=== PATIENT | female | born 1950 | race Caucasian/White ===

== ENCOUNTER → 2016-10-03 | Outpatient (CLI) | payer MEDICARE, OTHER ==
[2016-10-03 14:04] LABS: CHLORIDE,CL 107 mmol/L (98-110); SODIUM,NA 141 mmol/L (136-146)
== END ==
LOC: MW.CHIM 13:00
PROVIDERS: ATTEND Internal Medicine Endocrinology, Diabetes & Metabolism
DX: E83.51 Hypocalcemia (principal)
CPT/HCPCS: 36415; 80053

== ENCOUNTER → 2016-10-23 | Outpatient (CLI) | payer MEDICARE, OTHER | END | disposition home or self-care (01) | LOC: MW.LAB 13:03 | PROVIDERS: ATTEND Surgery | DX: E89.0 Postprocedural hypothyroidism (principal) | CPT/HCPCS: 36415; 84439; 84443; 84481 ==

== ENCOUNTER → 2016-11-23 | Outpatient (CLI) | payer MEDICARE ==
[2016-11-23 14:10] LABS: CHLORIDE,CL 109 mmol/L (98-110); SODIUM,NA 141 mmol/L (136-146)
== END ==
LOC: MW.LAB 12:58
PROVIDERS: ATTEND Internal Medicine Endocrinology, Diabetes & Metabolism
DX: E83.51 Hypocalcemia (principal)
CPT/HCPCS: 36415; 80053; 82306; 82310; 83735; 83970; 84100

== ENCOUNTER → 2016-11-30 | Outpatient (CLI) | payer MEDICARE ==
[2016-11-30 14:01] LABS: CHLORIDE,CL 107 mmol/L (98-110); SODIUM,NA 139 mmol/L (136-146)
== END ==
LOC: MW.CHIM 13:13
PROVIDERS: ATTEND Internal Medicine
DX: E78.5 Hyperlipidemia, unspecified (principal); E11.9 Type 2 diabetes mellitus without complications; I10 Essential (primary) hypertension; E78.00 Pure hypercholesterolemia, unspecified; E03.9 Hypothyroidism, unspecified
CPT/HCPCS: 36415; 80053; 80061; 83036; 84439; 84443; 85025

== ENCOUNTER → 2016-12-05 | Outpatient (CLI) | payer MEDICARE | LOC: MW.CHIM 15:54 | PROVIDERS: ATTEND Internal Medicine | DX: R25.2 Cramp and spasm (principal); E11.9 Type 2 diabetes mellitus without complications; E89.0 Postprocedural hypothyroidism; I10 Essential (primary) hypertension; E78.5 Hyperlipidemia, unspecified | CPT/HCPCS: 36415; 82085; 82550; 99214 ==

== ENCOUNTER → 2016-12-18 | Outpatient (CLI) | payer MEDICARE | LOC: MW.LAB 12:45 | PROVIDERS: ATTEND Internal Medicine Endocrinology, Diabetes & Metabolism | DX: E89.2 Postprocedural hypoparathyroidism (principal); E55.9 Vitamin D deficiency, unspecified | CPT/HCPCS: 36415; 82306; 82310; 83970 ==

== ENCOUNTER → 2016-12-27 | Outpatient (CLI) | payer MEDICARE | LOC: MW.LAB 12:45 | PROVIDERS: ATTEND Internal Medicine Endocrinology, Diabetes & Metabolism | DX: E03.8 Other specified hypothyroidism (principal) | CPT/HCPCS: 36415; 84439; 84443; 84481 ==

== ENCOUNTER 2018-11-22 04:58 | Day surgery (SDC) | payer MEDICARE ==
[2018-11-22] MEDS ORDERED: Sodium Chloride 0.9% 1,000 ML IV ONE (05:20)
[2018-11-22] MEDS ORDERED: Ondansetron 4 MG/2 ML SDV IVPUSH ONE (05:20)
[2018-11-22] MEDS ORDERED: Ketorolac 30 MG/ML SDV IVPUSH ONE (05:20)
[2018-11-22] MEDS ORDERED: Tamsulosin 0.4 MG Cap.ER PO ONE (05:21)
--- NOTE | 2018-11-22 05:32 | EDM.PDOC ---
ED HPI GENERAL MEDICAL PROBLEM - General Chief Complaint: Flank Pain Stated Complaint: KIDNEY STONE Time Seen by Provider: 11/22/18 05:28 - History of Present Illness INITIAL COMMENTS - FREE TEXT/NARRATIVE: HISTORY AND PHYSICAL: History of present illness: Patient 60-year-old female history of urolithiasis who presents with concern of acute left flank pain with associated nausea no vomiting no fever no chills she denies trauma she's had similar episodes in the past. Review of systems: As per history of present illness and below otherwise all systems reviewed and negative. Past medical history: As per history of present illness and as reviewed below otherwise noncontributory. Surgical history: As per history of present illness and as reviewed below otherwise noncontributory. Social history: No reported history of drug or alcohol abuse. Family history: As per history of present illness and as reviewed below otherwise noncontributory. Physical exam: HEENT: Atraumatic, normocephalic, pupils reactive, negative for conjunctival pallor or scleral icterus, mucous membranes moist, throat clear, neck supple, nontender, trachea midline. Lungs: Clear to auscultation, breath sounds equal bilaterally, chest nontender. Heart: S1S2, regular, negative for clicks, rubs, or JVD. Abdomen: Soft, nondistended, nontender. Negative for masses or hepatosplenomegaly. Left-sided costovertebral tenderness. Pelvis: Stable nontender. Genitourinary: Deferred. Rectal: Deferred. Extremities: Atraumatic, negative for cords or calf pain. Neurovascular unremarkable. Neuro: Awake, alert, oriented. Cranial nerves II through XII unremarkable. Cerebellum unremarkable. Motor and sensory unremarkable throughout. Exam nonfocal. Diagnostics: CBC CMP UA CT abdomen and pelvis Therapeutics: Saline 1 L bolus and Toradol 30 mg IV Zofran 4 mg IV Flomax 0.4 mg by mouth Impression: #1 acute left flank pain #2 history of urolithiasis Definitive disposition and diagnosis as appropriate pending reevaluation and review of above. left flank Pain Score (Numeric/FACES): 8 - Related Data Allergies Allergy/AdvReac Type Severity Reaction Status Date / Time cefuroxime axetil Allergy Hives Verified 11/22/18 05:19 [From Ceftin] cephalexin monohydrate Allergy Hives Verified 11/22/18 05:19 [From Keflex] erythromycin base Allergy Hives Verified 11/22/18 05:19 [Erythromycin Base] fluvastatin sodium Allergy Arrhythmias Verified 11/22/18 05:19 [From Lescol] hydrocodone Allergy Hives Verified 11/22/18 05:19 sulfamethoxazole Allergy Hives Verified 11/22/18 05:19 [From Bactrim] trimethoprim [From Bactrim] Allergy Hives Verified 11/22/18 05:19 Home Meds: Home Meds Bimatoprost [LUMIGAN 0.01% Ophth Soln] 1 drop EYEBOTH DAILY 02/01/18 [History] Cholecalciferol (Vitamin D3) [Vitamin D3] 1,000 unit PO WEEKLY 02/01/18 [History ] Cyanocobalamin (Vitamin B-12) [Vitamin B-12] 500 mcg BUCCAL DAILY 02/01/18 [ History] Famotidine 20 mg PO BID 02/01/18 [History] Glucosamine [Glucosamine Sulfate] 1,500 mg PO DAILY 02/01/18 [History] Levothyroxine [Synthroid] 100 mcg PO DAILY 02/01/18 [History] Lisinopril 20 mg PO DAILY 02/01/18 [History] Timolol Maleate [Timoptic 0.5% Ophth Soln] 1 drop EYEBOTH DAILY 02/01/18 [ History] Ubidecarenone [Coq-10] 100 mg PO DAILY 02/01/18 [History] atorvaSTATin Calcium [Atorvastatin Calcium] 20 mg PO DAILY 02/01/18 [History] metFORMIN HCl [Metformin HCl] 500 mg PO BID 02/01/18 [History] Past Medical History HEENT History: Reports: Impaired Vision, Other (See Below) Other HEENT History: wears glasses Cardiovascular History: Reports: High Cholesterol, Hypertension, Other (See Below) Other Cardiovascular History: presently on holter monitoring for palpitations Gastrointestinal History: Reports: GERD MORTGAGE ORIGINATOR History: Reports: , Other (See Below) Other MORTGAGE ORIGINATOR History: right modified breast mkasectomy Musculoskeletal History: Reports: Arthritis, Osteoarthritis Psychiatric History: Reports: Depression Endocrine/Metabolic History: Reports: Diabetes, Type II, Hypothyroidism - Infectious Disease History Infectious Disease History: Reports: Chicken Pox, Measles, Mumps - Past Surgical History HEENT Surgical History: Reports: Adenoidectomy, Tonsillectomy Cardiovascular Surgical History: Reports: None GI Surgical History: Reports: None Female Surgical History: Reports: Section, Hysterectomy, Kidney stone extraction Endocrine Surgical History: Reports: Thyroidectomy Neurological Surgical History: Reports: Other (See Below) Other Neurological Surgeries/Procedures: "2 metal plates in my head, 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 ED EXAM, GENERAL - Physical Exam Exam: See Below (See dictation) Course - Vital Signs Last Recorded V/S: Last Vital Signs Temp 36.1 C 11/22/18 05:06 Pulse 72 11/22/18 07:07 Resp 16 11/22/18 07:07 BP 131/74 11/22/18 07:07 Pulse Ox 98 11/22/18 07:07 - Orders/Labs/Meds Orders: Active Orders 24 hr Category Date Time Status CBC WITH AUTO DIFF [HEME] Stat Lab 11/22/18 05:20 Ordered COMPREHENSIVE METABOLIC PN,CMP [CHEM] Stat Lab 11/22/18 05:20 Ordered CULTURE URINE [RM] Stat Lab 11/22/18 09:24 Ordered UA RFX CHARANJIT AND CULT IF INDIC [URIN] Stat Lab 11/22/18 05:10 Received Levofloxacin/Dextrose 5%-Water [Levaquin in D5W 750 MG/ Med 11/22/18 09:24 Active 150 ML] 750 mg Premix Bag 1 bag IV ONETIME Medication Orders Levofloxacin/Dextrose 750 mg/ (Premix) 150 mls @ 100 mls/hr IV ONETIME ONE Stop: 11/22/18 10:53 Labs: Laboratory Tests 11/22/18 11/22/18 11/22/18 Range/Units 05:10 05:25 05:25 WBC 12.28 H (4.0-11.0) K/uL RBC 4.51 (4.30-5.90) M/uL Hgb 12.9 (12.0-16.0) g/dL Hct 40.2 (36.0-46.0) % MCV 89.1 (80.0-98.0) fL MCH 28.6 (27.0-32.0) pg MCHC 32.1 (31.0-37.0) g/dL RDW Std Deviation 46.2 (28.0-62.0) fl RDW Coeff of Wanda 14 (11.0-15.0) % Plt Count 243 (150-400) K/uL MPV 10.10 (7.40-12.00) fL Neut % (Auto) 75.5 (48.0-80.0) % Lymph % (Auto) 16.7 (16.0-40.0) % [place] % (Auto) 5.9 (0.0-15.0) % Eos % (Auto) 1.7 (0.0-7.0) % Baso % (Auto) 0.2 (0.0-1.5) % Neut # (Auto) 9.3 H (1.4-5.7) K/uL Lymph # (Auto) 2.1 (0.6-2.4) K/uL [place] # (Auto) 0.7 (0.0-0.8) K/uL Eos # (Auto) 0.2 (0.0-0.7) K/uL Baso # (Auto) 0.0 (0.0-0.1) K/uL Nucleated RBC % 0.0 /100WBC Nucleated RBCs # 0 K/uL Sodium 140 (136-145) mmol/L Potassium 4.0 (3.5-5.1) mmol/L Chloride 106 (98-107) mmol/L Carbon Dioxide 23.1 (21.0-32.0) mmol/L BUN 15 (7.0-18.0) mg/dL Creatinine 1.4 H (0.6-1.0) mg/dL Est Cr Clr Drug Dosing 30.42 mL/min Estimated GFR (MDRD) 37.4 ml/min Glucose 154 H (74-106) mg/dL Calcium 9.3 (8.5-10.1) mg/dL Total Bilirubin 0.4 (0.2-1.0) mg/dL AST 14 L (15-37) IU/L ALT 26 (14-63) IU/L Alkaline Phosphatase 53 (46-116) U/L Total Protein 7.1 (6.4-8.2) g/dL Albumin 3.8 (3.4-5.0) g/dL Globulin 3.3 (2.6-4.0) g/dL Albumin/Globulin Ratio 1.2 (0.9-1.6) Urine Color YELLOW Urine Appearance CLEAR Urine pH 5.0 (5.0-8.0) Ur Specific [place] 1.020 (1.001-1.035) Urine Protein NEGATIVE (NEGATIVE) mg/dL Urine Glucose (UA) NEGATIVE (NEGATIVE) mg/dL Urine Ketones NEGATIVE (NEGATIVE) mg/dL Urine Occult Blood MODERATE H (NEGATIVE) Urine Nitrite NEGATIVE (NEGATIVE) Urine Bilirubin NEGATIVE (NEGATIVE) Urine Urobilinogen 0.2 (<2.0) EU/dL Ur Leukocyte Esterase NEGATIVE (NEGATIVE) Urine RBC 3-6 (0-2/HPF) Urine WBC 0-1 (0-5/HPF) Ur Squamous Epith Cells RARE Urine Bacteria RARE (NEGATIVE) Urine Mucus LIGHT (NONE-MOD) Meds: Medications Generic Name Dose Route Start Last Admin Trade Name Freq PRN Reason Stop Dose Admin Levofloxacin/Dextrose 750 mg/ 150 mls @ 100 mls/hr 11/22/18 09:24 Premix IV 11/22/18 10:53 ONETIME ONE Discontinued Medications Generic Name Dose Route Start Last Admin Trade Name Freq PRN Reason Stop Dose Admin Sodium Chloride 1,000 mls @ 999 mls/hr 11/22/18 05:20 11/22/18 05:25 Normal Saline IV 11/22/18 06:20 999 mls/hr .Bolus ONE Administration Ketorolac Tromethamine 30 mg 11/22/18 05:20 11/22/18 05:29 Toradol IVPUSH 11/22/18 05:21 30 mg ONETIME ONE Administration Ondansetron HCl 4 mg 11/22/18 05:20 11/22/18 05:28 Zofran IVPUSH 11/22/18 05:21 4 mg ONETIME ONE Administration Tamsulosin HCl 0.4 mg 11/22/18 05:21 11/22/18 05:30 Flomax PO 11/22/18 05:22 0.4 mg ONETIME ONE Administration Departure - Departure Time of Disposition: 09:26 Disposition: Still A Patient 30 Condition: Good Clinical Impression: Urolithiasis - Discharge Information Referrals: Geovanny Ugarte MD [Primary Care Provider] - Forms: ED Department Discharge - My Orders Last 24 Hours: My Active Orders 11/22/18 05:10 UA RFX CHARANJIT AND CULT IF INDIC [URIN] Stat 11/22/18 05:20 CBC WITH AUTO DIFF [HEME] Stat COMPREHENSIVE METABOLIC PN,CMP [CHEM] Stat 11/22/18 09:24 CULTURE URINE [RM] Stat Levofloxacin/Dextrose 5%-Water [Levaquin in D5W 750 MG/150 ML] 750 mg Premix Bag 1 bag IV ONETIME - Assessment/Plan Last 24 Hours: My Active Orders 11/22/18 05:10 UA RFX CHARANJIT AND CULT IF INDIC [URIN] Stat 11/22/18 05:20 CBC WITH AUTO DIFF [HEME] Stat COMPREHENSIVE METABOLIC PN,CMP [CHEM] Stat 11/22/18 09:24 CULTURE URINE [RM] Stat Levofloxacin/Dextrose 5%-Water [Levaquin in D5W 750 MG/150 ML] 750 mg Premix Bag 1 bag IV ONETIME
--- NOTE | 2018-11-22 05:57 | CT ---
INDICATION: Left flank pain TECHNIQUE: CT Abdomen and pelvis without i.v. contrast. Coronal and sagittal reformats were obtained. COMPARISON: 05/17/2012 FINDINGS: Lower chest: Unremarkable. Liver: Unremarkable. Spleen: Unremarkable. Pancreas: Unremarkable. Gallbladder: Moderate to severe nonspecific gallbladder distention is present measuring 5.8 cm. Kidney: There is a 7 mm stone present in the left ureterovesicular junction causing moderate left hydroureter and moderate pelvicaliectasis. Mild left perinephric edema is seen. Pelvic cysts are noted in the renal sinus bilaterally. There is a 1 cm stone present in the right ureteropelvic junction causing mild to moderate right renal pelvicaliectasis. Adrenal: Unremarkable. Bowel: Unremarkable. The appendix is normal in appearance and size. Vascular: Unremarkable. Lymph: Unremarkable. Peritoneum: Left retroperitoneal edema is present extending from the left perinephric space into the pelvis. No pneumoperitoneum is seen. No significant ascites is noted. Pelvis: The patient is status post prior hysterectomy. Soft tissue: Unremarkable. Bone: Unremarkable for age. IMPRESSIONS: 1. There is a 7 mm stone present in the left ureterovesicular junction causing moderate left hydroureter and moderate pelvicaliectasis. Mild left perinephric edema is seen. 2. There is a 1 cm stone present in the right ureteropelvic junction causing mild to moderate right renal pelvicaliectasis. Dictated by Vishal Sweet MD @ 11/22/2018 5:52:28 AM Please note that all CT scans at this facility use dose modulation, iterative reconstruction, and/or weight-based dosing when appropriate to reduce radiation dose to as low as reasonably achievable. Dictated by: Vishal Sweet MD @ 11/22/2018 05:56:11 (Electronically Signed)
[2018-11-22] MEDS ORDERED: Levofloxacin/Dextrose 5%-Water 750 MG in Premix Bag 1 BAG IV ONE (09:24)
[2018-11-22] MEDS ORDERED: Acetaminophen 1,000 MG in Premix Bag 1 BAG IV ONE (11:24)
--- NOTE | 2018-11-22 11:36 | PCM.PREANE ---
Preanesthetic Assessment - Anesthesia/Transfusion/Family Hx Anesthesia History: Prior Anesthesia Without Reaction Family History of Anesthesia Reaction: No - Review of Systems General: Other (chiki uses cpap) Cardiovascular: Palpitations Gastrointestinal: Abdominal Pain Neurological: No Symptoms Other: Reports: None - Physical Assessment NPO Status Date: 11/21/18 O2 Sat by Pulse Oximetry: 97 Respiratory Rate: 16 Vital Signs: Last Vital Signs Temp 96.9 F 11/22/18 05:06 Pulse 79 11/22/18 09:56 Resp 16 11/22/18 07:07 BP 134/71 11/22/18 09:56 Pulse Ox 97 11/22/18 09:56 Height: 5 ft 2 in Weight: 112.037 kg ASA Class: 2 Mental Status: Alert & Oriented x3 Airway Class: Mallampati = 2 Dentition: Reports: Normal Dentition ROM/Head Extension: Full Lungs: Clear to Auscultation, Normal Respiratory Effort Cardiovascular: Regular Rate, Regular Rhythm - Lab Values: Laboratory Last Values WBC 12.28 K/uL (4.0-11.0) H 11/22/18 05:25 RBC 4.51 M/uL (4.30-5.90) 11/22/18 05:25 Hgb 12.9 g/dL (12.0-16.0) 11/22/18 05:25 Hct 40.2 % (36.0-46.0) 11/22/18 05:25 MCV 89.1 fL (80.0-98.0) 11/22/18 05:25 MCH 28.6 pg (27.0-32.0) 11/22/18 05:25 MCHC 32.1 g/dL (31.0-37.0) 11/22/18 05:25 RDW Std Deviation 46.2 fl (28.0-62.0) 11/22/18 05:25 RDW Coeff of Wanda 14 % (11.0-15.0) 11/22/18 05:25 Plt Count 243 K/uL (150-400) 11/22/18 05:25 MPV 10.10 fL (7.40-12.00) 11/22/18 05:25 Neut % (Auto) 75.5 % (48.0-80.0) 11/22/18 05:25 Lymph % (Auto) 16.7 % (16.0-40.0) 11/22/18 05:25 [place] % (Auto) 5.9 % (0.0-15.0) 11/22/18 05:25 Eos % (Auto) 1.7 % (0.0-7.0) 11/22/18 05:25 Baso % (Auto) 0.2 % (0.0-1.5) 11/22/18 05:25 Neut # (Auto) 9.3 K/uL (1.4-5.7) H 11/22/18 05:25 Lymph # (Auto) 2.1 K/uL (0.6-2.4) 11/22/18 05:25 [place] # (Auto) 0.7 K/uL (0.0-0.8) 11/22/18 05:25 Eos # (Auto) 0.2 K/uL (0.0-0.7) 11/22/18 05:25 Baso # (Auto) 0.0 K/uL (0.0-0.1) 11/22/18 05:25 Nucleated RBC % 0.0 /100WBC 11/22/18 05:25 Nucleated RBCs # 0 K/uL 11/22/18 05:25 Sodium 140 mmol/L (136-145) 11/22/18 05:25 Potassium 4.0 mmol/L (3.5-5.1) 11/22/18 05:25 Chloride 106 mmol/L (98-107) 11/22/18 05:25 Carbon Dioxide 23.1 mmol/L (21.0-32.0) 11/22/18 05:25 BUN 15 mg/dL (7.0-18.0) 11/22/18 05:25 Creatinine 1.4 mg/dL (0.6-1.0) H 11/22/18 05:25 Est Cr Clr Drug Dosing 30.42 mL/min 11/22/18 05:25 Estimated GFR (MDRD) 37.4 ml/min 11/22/18 05:25 Glucose 154 mg/dL (74-106) H 11/22/18 05:25 Calcium 9.3 mg/dL (8.5-10.1) 11/22/18 05:25 Total Bilirubin 0.4 mg/dL (0.2-1.0) 11/22/18 05:25 AST 14 IU/L (15-37) L 11/22/18 05:25 ALT 26 IU/L (14-63) 11/22/18 05:25 Alkaline Phosphatase 53 U/L (46-116) 11/22/18 05:25 Total Protein 7.1 g/dL (6.4-8.2) 11/22/18 05:25 Albumin 3.8 g/dL (3.4-5.0) 11/22/18 05:25 Globulin 3.3 g/dL (2.6-4.0) 11/22/18 05:25 Albumin/Globulin Ratio 1.2 (0.9-1.6) 11/22/18 05:25 Urine Color YELLOW 11/22/18 05:10 Urine Appearance CLEAR 11/22/18 05:10 Urine pH 5.0 (5.0-8.0) 11/22/18 05:10 Ur Specific [place] 1.020 (1.001-1.035) 11/22/18 05:10 Urine Protein NEGATIVE mg/dL (NEGATIVE) 11/22/18 05:10 Urine Glucose (UA) NEGATIVE mg/dL (NEGATIVE) 11/22/18 05:10 Urine Ketones NEGATIVE mg/dL (NEGATIVE) 11/22/18 05:10 Urine Occult Blood MODERATE (NEGATIVE) H 11/22/18 05:10 Urine Nitrite NEGATIVE (NEGATIVE) 11/22/18 05:10 Urine Bilirubin NEGATIVE (NEGATIVE) 11/22/18 05:10 Urine Urobilinogen 0.2 EU/dL (<2.0) 11/22/18 05:10 Ur Leukocyte Esterase NEGATIVE (NEGATIVE) 11/22/18 05:10 Urine RBC 3-6 (0-2/HPF) 11/22/18 05:10 Urine WBC 0-1 (0-5/HPF) 11/22/18 05:10 Ur Squamous Epith Cells RARE 11/22/18 05:10 Urine Bacteria RARE (NEGATIVE) 11/22/18 05:10 Urine Mucus LIGHT (NONE-MOD) 11/22/18 05:10 - Allergies Allergies/Adverse Reactions: Allergies Allergy/AdvReac Type Severity Reaction Status Date / Time cefuroxime axetil Allergy Hives Verified 11/22/18 05:19 [From Ceftin] cephalexin monohydrate Allergy Hives Verified 11/22/18 05:19 [From Keflex] erythromycin base Allergy Hives Verified 11/22/18 05:19 [Erythromycin Base] fluvastatin sodium Allergy Arrhythmias Verified 11/22/18 05:19 [From Lescol] hydrocodone Allergy Hives Verified 11/22/18 05:19 sulfamethoxazole Allergy Hives Verified 11/22/18 05:19 [From Bactrim] trimethoprim [From Bactrim] Allergy Hives Verified 11/22/18 05:19 - Blood Blood Available: No - Anesthesia Plan Pre-Op Medication Ordered: None - Acknowledgements Anesthesia Type Planned: General Anesthesia Pt an Appropriate Candidate for the Planned Anesthesia: Yes Alternatives and Risks of Anesthesia Discussed w Pt/Guardian: Yes Pt/Guardian Understands and Agrees with Anesthesia Plan: Yes Additional Comments: PMH: CHIKI, dm2, htn, obesity, glaucoma, on holter monitor for palpitations, hld, s/p mastectomy PLAN: get PreAnesthesia Questionnaire HEENT History: Reports: Impaired Vision, Other (See Below) Other HEENT History: wears glasses Cardiovascular History: Reports: High Cholesterol, Hypertension, Other (See Below) Other Cardiovascular History: presently on holter monitoring for palpitations Gastrointestinal History: Reports: GERD COBBLER SOLE History: Reports: , Other (See Below) Other OB/BYN History: right modified breast mkasectomy Musculoskeletal History: Reports: Arthritis, Osteoarthritis Psychiatric History: Reports: Depression Endocrine/Metabolic History: Reports: Diabetes, Type II, Hypothyroidism - Infectious Disease History Infectious Disease History: Reports: Chicken Pox, Measles, Mumps - Past Surgical History HEENT Surgical History: Reports: Adenoidectomy, Tonsillectomy Cardiovascular Surgical History: Reports: None GI Surgical History: Reports: None Female Surgical History: Reports: Section, Hysterectomy, Kidney stone extraction Endocrine Surgical History: Reports: Thyroidectomy Neurological Surgical History: Reports: Other (See Below) Other Neurological Surgeries/Procedures: "2 metal plates in my head, 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" Musculoskeletal Surgical History: Reports: Other (See Below) Other Musculoskeletal Surgeries/Procedures:: 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 - SUBSTANCE USE Smoking Status *Q: Never Smoker Second Hand Smoke Exposure: No Recreational Drug Use History: No - HOME MEDS Home Medications: Home Meds Bimatoprost [LUMIGAN 0.01% Ophth Soln] 1 drop EYEBOTH DAILY 02/01/18 [History] Cholecalciferol (Vitamin D3) [Vitamin D3] 1,000 unit PO WEEKLY 02/01/18 [History ] Cyanocobalamin (Vitamin B-12) [Vitamin B-12] 500 mcg BUCCAL DAILY 02/01/18 [ History] Famotidine 20 mg PO BID 02/01/18 [History] Glucosamine [Glucosamine Sulfate] 1,500 mg PO DAILY 02/01/18 [History] Levothyroxine [Synthroid] 100 mcg PO DAILY 02/01/18 [History] Lisinopril 20 mg PO DAILY 02/01/18 [History] Timolol Maleate [Timoptic 0.5% Ophth Soln] 1 drop EYEBOTH DAILY 02/01/18 [ History] Ubidecarenone [Coq-10] 100 mg PO DAILY 02/01/18 [History] atorvaSTATin Calcium [Atorvastatin Calcium] 20 mg PO DAILY 02/01/18 [History] metFORMIN HCl [Metformin HCl] 500 mg PO BID 02/01/18 [History] - CURRENT (IN HOUSE) MEDS Current Meds: Current Medications Acetaminophen 1,000 mg/ Premix 100 mls @ 400 mls/hr IV NOW ONE Stop: 11/22/18 11:38 Discontinued Medications Sodium Chloride (Normal Saline) 1,000 mls @ 999 mls/hr IV .Bolus ONE Stop: 11/22/18 06:20 Last Admin: 11/22/18 05:25 Dose: 999 mls/hr Levofloxacin/Dextrose 750 mg/ (Premix) 150 mls @ 100 mls/hr IV ONETIME ONE Stop: 11/22/18 10:53 Last Admin: 11/22/18 09:35 Dose: 100 mls/hr Ketorolac Tromethamine (Toradol) 30 mg IVPUSH ONETIME ONE Stop: 11/22/18 05:21 Last Admin: 11/22/18 05:29 Dose: 30 mg Ondansetron HCl (Zofran) 4 mg IVPUSH ONETIME ONE Stop: 11/22/18 05:21 Last Admin: 11/22/18 05:28 Dose: 4 mg Tamsulosin HCl (Flomax) 0.4 mg PO ONETIME ONE Stop: 11/22/18 05:22 Last Admin: 11/22/18 05:30 Dose: 0.4 mg
[2018-11-22] MEDS ORDERED: Glycopyrrolate 0.2 MG/ML SDV ONE (12:56)
[2018-11-22] MEDS ORDERED: Rocuronium 100 MG/10 ML Syringe ONE (12:56)
[2018-11-22] MEDS ORDERED: fentaNYL 250 MCG/5 ML SDV ONE (12:56)
[2018-11-22] MEDS ORDERED: Propofol 200 MG/20 ML SDV ONE (12:56)
[2018-11-22] MEDS ORDERED: Ondansetron 4 MG/2 ML SDV ONE (12:56)
[2018-11-22] MEDS ORDERED: Midazolam 1 MG/ML 2 ML SDV ONE (12:56)
[2018-11-22] MEDS ORDERED: Lidocaine 2% 5 ML SDV ONE (12:56)
[2018-11-22] MEDS ORDERED: Neostigmine Methylsulfate 1 MG/ML 5 ML Syringe ONE (12:56)
[2018-11-22] MEDS ORDERED: Iopamidol 408 MG/ML 50 ML SDV ONE (14:35)
[2018-11-22] MEDS ORDERED: Phenylephrine/Normal Saline 100 MCG/ML 10 ML Syringe ONE (14:42)
[2018-11-22] MEDS ORDERED: Sugammadex Sodium 200 MG/2 ML VIAL ONE ×2 (15:13→15:25)
[2018-11-22] MEDS ORDERED: Atropine 0.1 MG/ML 10 ML Syringe IVPUSH PRN ×2 (15:33)
[2018-11-22] MEDS ORDERED: Albuterol 0.083% 2.5 MG/3 ML Neb Soln NEB PRN (15:33)
[2018-11-22] MEDS ORDERED: EPINEPHrine 1:10,000 1 MG/10 ML Syringe IVPUSH PRN (15:33)
[2018-11-22] MEDS ORDERED: fentaNYL 100 MCG/2 ML SDV IVPUSH PRN (15:33)
[2018-11-22] MEDS ORDERED: Naloxone 0.4 MG/ML Syringe IVPUSH PRN (15:33)
[2018-11-22] MEDS ORDERED: 50% Dextrose in Water 50 ML Syringe IVPUSH PRN (15:33)
--- NOTE | 2018-11-22 15:57 | PCM.POSTAN ---
POST ANESTHESIA ASSESSMENT - MENTAL STATUS Mental Status: Alert, Oriented - RESPIRATORY Respiratory Status: Respiratory Rate WNL, Airway Patent, O2 Saturation Stable - CARDIOVASCULAR CV Status: Pulse Rate WNL, Blood Pressure Stable - GASTROINTESTINAL GI Status: No Symptoms - PAIN Pain Score: 0 - POST OP HYDRATION Hydration Status: Adequate & Stable
--- NOTE | 2018-11-22 16:12 | CONS ---
DATE OF CONSULTATION: DATE OF : 1950 PRIMARY CARE PHYSICIAN: Geovanny Ugarte HISTORY OF PRESENT ILLNESS: A [id number]. She was in the emergency room complaining of left flank pain. She had urinary stones in the past. Her UA was not suggestive of UTI. Her white blood count is normal. Her CT scan showed a 9 mm left lower ureteral stone and 1.1 cm right upper ureteral stone. Both are obstructive, more so on the left than the right. She was having pain on the left side. MEDICAL HISTORY: Hypertension, diabetes stable. Recently, she had a Holter monitor placed on her because she was complaining of abnormal heartbeats. She was seen by Dr. Ugarte, who treated the UTI and put a Holter monitor on. PHYSICAL EXAMINATION: GENERAL: She is alert she is oriented. HEART: Normal sinus rhythm. LUNGS: Clear. ABDOMEN: Obese, otherwise negative. ASSESSMENT AND PLAN: Left ureteroscopy that is the stone with a greater degree obstruction and right double-J stent placement. That was explained to the patient and she agrees. She will be seen by Anesthesia in preparation. DIANE PETTIT /[id number]
--- NOTE | 2018-11-22 16:30 | OR ---
SURGEON: Eduardo Manriquez M.D. DATE OF PROCEDURE: 11/22/2018 PREOPERATIVE DIAGNOSES: Left lower ureteral stone, 9 mm, and right upper ureteral stone, 1.1 cm. POSTOPERATIVE DIAGNOSES: Left lower ureteral stone, 9 mm, and right upper ureteral stone, 1.1 cm. OPERATIONS: Left ureteroscopy, laser lithotripsy, stone removal, and right double-J stent placement. DESCRIPTION OF PROCEDURE: The patient was given general anesthesia. She was placed in dorsal lithotomy position, prepped and draped in sterile drapes. Cystourethroscopy was done that was normal. A guidewire was attempted on the left side, but that did not go through, so a Glidewire was then used. That gave us access into the rest of the ureter. The lower ureter was then dilated using UroMax II balloon dilator to approximately 15-[place]. The rigid ureteroscope was advanced in the left ureter. Attempts at removing the stone in 1 piece were not successful, so the stone was broken up into a number of pieces, these were all removed. With that done, the Glidewire was advanced on the right side alongside the stone, which had low density. All the way up into the renal pelvis, a 6-Kazakh 26 cm double- J stent was placed over that. Position was confirmed on fluoroscopy. The bladder was emptied, and the patient was moved to recovery room in good condition. PLAN: She will be seen in the office in 1 week's time for followup. DIANE / HODAN /[id number]
--- NOTE | 2018-11-22 17:04 | PCM48HPAN ---
Post Anesthesia Note - EVALUATION WITHIN 48HRS OF ANESTHETIC Vital Signs in Normal Range: Yes Patient Participated in Evaluation: Yes Respiratory Function Stable: Yes Airway Patent: Yes Cardiovascular Function Stable: Yes Hydration Status Stable: Yes Pain Control Satisfactory: Yes Nausea and Vomiting Control Satisfactory: Yes Mental Status Recovered: Yes Resp Rate: 16
--- NOTE | 2018-11-25 08:44 | CR ---
EXAMINATION: Cystoscopy HISTORY: Operative procedure COMPARISON: CT dated 11/22/2018 TECHNIQUE: 2 views FINDINGS/IMPRESSION: Operative control films demonstrate balloon stone removal within the distal left ureter and stent placement within the right renal collecting system.
== END 2018-11-22 17:30 | disposition home or self-care (01) ==
LOC: MW.ED 04:58 → MW.SDS 09:33
PROVIDERS: ATTEND Urology
DX: N20.1 Calculus of ureter (principal); I10 Essential (primary) hypertension; E11.9 Type 2 diabetes mellitus without complications; K21.9 Gastro-esophageal reflux disease without esophagitis; E03.9 Hypothyroidism, unspecified; Z88.1 Allergy status to other antibiotic agents; Z88.5 Allergy status to narcotic agent; Z88.2 Allergy status to sulfonamides; Z88.8 Allergy status to other drugs, medicaments and biological substances
CPT/HCPCS: 36415; 52352; 52356; 74176; 76000; 80053; 81001; 85025; 87086; 96361; 96365; 96375; 99285; A9270; C1769; J0131; J1885; J1956; J2001; J2250; J2370; J2405; J2704; J3010; J3490; J7040; Q9966; 88300; 99283

== ENCOUNTER 2018-12-05 06:28 | Day surgery (SDC) | payer MEDICARE, OTHER ==
[~2018-12-05 06:28] MED LIST: Ciprofloxacin in D5W 400 MG in Premix Bag 1 BAG IV ONE; Lactated Ringers 1,000 ML IV SCH; Sodium Chloride 0.9% 10 ML SDV IV PRN; Sodium Chloride 0.9% 10 ML Syringe FLUSH PRN; Sodium Chloride 0.9% 2.5 ML Syringe FLUSH PRN
[2018-12-05] MEDS ORDERED: Ondansetron 4 MG/2 ML SDV ONE (07:11)
[2018-12-05] MEDS ORDERED: Lidocaine 2% 5 ML SDV ONE (07:11)
[2018-12-05] MEDS ORDERED: Propofol 200 MG/20 ML SDV ONE (07:12)
[2018-12-05] MEDS ORDERED: Midazolam 1 MG/ML 2 ML SDV ONE (07:12)
[2018-12-05] MEDS ORDERED: fentaNYL 250 MCG/5 ML SDV ONE (07:12)
--- NOTE | 2018-12-05 07:28 | PCM.PREANE ---
Preanesthetic Assessment - Anesthesia/Transfusion/Family Hx Anesthesia History: Prior Anesthesia Without Reaction Family History of Anesthesia Reaction: No Transfusion History: No Prior Transfusion(s) Intubation History: Unknown - Review of Systems General: No Symptoms Pulmonary: No Symptoms Cardiovascular: No Symptoms Gastrointestinal: No Symptoms Neurological: No Symptoms Other: Reports: None - Physical Assessment Height: 1.6 m Weight: 113.398 kg ASA Class: 3 Mental Status: Alert & Oriented x3 Airway Class: Mallampati = 2 Dentition: Reports: Normal Dentition Thyro-Mental Finger Breadths: 3 Mouth Opening Finger Breadths: 3 ROM/Head Extension: Full Lungs: Clear to Auscultation, Normal Respiratory Effort Cardiovascular: Regular Rate, Regular Rhythm - Allergies Allergies/Adverse Reactions: Allergies Allergy/AdvReac Type Severity Reaction Status Date / Time adhesive tape Allergy Rash Verified 12/03/18 09:14 brimonidine Allergy Rash Verified 12/03/18 09:14 cefuroxime axetil Allergy Hives Verified 12/03/18 09:14 [From Ceftin] cephalexin monohydrate Allergy Hives Verified 12/03/18 09:14 [From Keflex] erythromycin base Allergy Hives Verified 12/03/18 09:14 [Erythromycin Base] fluvastatin sodium Allergy Arrhythmias Verified 12/03/18 09:14 [From Lescol] hydrocodone Allergy Hives Verified 12/03/18 09:14 sulfamethoxazole Allergy Hives Verified 12/03/18 09:14 [From Bactrim] trimethoprim [From Bactrim] Allergy Hives Verified 12/03/18 09:14 - Blood Blood Available: No - Anesthesia Plan Pre-Op Medication Ordered: None - Acknowledgements Anesthesia Type Planned: General Anesthesia Pt an Appropriate Candidate for the Planned Anesthesia: Yes Alternatives and Risks of Anesthesia Discussed w Pt/Guardian: Yes Pt/Guardian Understands and Agrees with Anesthesia Plan: Yes PreAnesthesia Questionnaire HEENT History: Reports: Glaucoma, Other (See Below) Other HEENT History: wears glasses Cardiovascular History: Reports: Arrhythmia, High Cholesterol, Hypertension Other Cardiovascular History: hx of "palpitations", recent Holter Monitor, no results yet Respiratory History: Reports: Sleep Apnea Other Respiratory History: uses CPAP Gastrointestinal History: Reports: GERD Genitourinary History: Reports: Renal Calculus, UTI, Recurrent [employer]IVE History: Reports: Other OB/BYN History: right modified breast mkasectomy Musculoskeletal History: Reports: Arthritis, Back Pain, Chronic, Neck Pain, Chronic, Other (See Below) Other Musculoskeletal History: hx of Fibrocystic Polydysplasticostatic, 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 Psychiatric History: Reports: Depression Endocrine/Metabolic History: Reports: Diabetes, Type II (glucose 122 this morning), Hypothyroidism, Obesity/BMI 30+ (BMI 44.3) Oncologic (Cancer) History: Reports: Breast - Infectious Disease History Infectious Disease History: Reports: Chicken Pox, Measles, Mumps - Past Surgical History Head Surgeries/Procedures: Reports: Craniotomy HEENT Surgical History: Reports: Adenoidectomy, Tonsillectomy, Other (See Below) Other HEENT Surgeries/Procedures: 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 ( two metal plates in her aida) Female Surgical History: Reports: Section, Hysterectomy, Lithotripsy /ESWL, Mastectomy Other Female Surgeries/Procedures: right Modified Radical Mastectomy Endocrine Surgical History: Reports: Parathyroidectomy, Thyroidectomy Neurological Surgical History: Reports: Other (See Below) Other Neurological Surgeries/Procedures: hx of craniotomy x3 as a child Musculoskeletal Surgical History: Reports: Other (See Below) Other Musculoskeletal Surgeries/Procedures:: removal of 3 benign tumors left arm Oncologic Surgical History: Reports: Mastectomy - SUBSTANCE USE Smoking Status *Q: Never Smoker Recreational Drug Use History: No - HOME MEDS Home Medications: Home Meds Bimatoprost [LUMIGAN 0.01% Ophth Soln] 1 drop EYEBOTH BEDTIME 02/01/18 [History] Cyanocobalamin (Vitamin B-12) [Vitamin B-12] 500 mcg BUCCAL DAILY 02/01/18 [ History] Famotidine 20 mg PO BID 02/01/18 [History] Glucosamine [Glucosamine Sulfate] 1,500 mg PO DAILY 02/01/18 [History] Levothyroxine [Synthroid] 88 mcg PO DAILY 02/01/18 [History] Lisinopril 20 mg PO DAILY 02/01/18 [History] Timolol Maleate [Timoptic 0.5% Ophth Soln] 1 drop EYEBOTH QAM 02/01/18 [History] Ubidecarenone [Coq-10] 100 mg PO DAILY 02/01/18 [History] atorvaSTATin Calcium [Atorvastatin Calcium] 20 mg PO DAILY 02/01/18 [History] metFORMIN HCl [Metformin HCl] 750 mg PO BID 02/01/18 [History] Ergocalciferol (Vitamin D2) [Vitamin D2] 1.25 mg PO DAILY 12/03/18 [History] Protandim 1 tab PO DAILY 12/03/18 [History] - CURRENT (IN HOUSE) MEDS Current Meds: Current Medications Lactated Ringer's (Ringers, Lactated) 1,000 mls @ 100 mls/hr IV ASDIRECTED DANYELL Sodium Chloride (Saline Flush) 10 ml FLUSH ASDIRECTED PRN PRN Reason: Keep Vein Open Sodium Chloride (Saline Flush) 2.5 ml FLUSH ASDIRECTED PRN PRN Reason: Keep Vein Open Sodium Chloride (Normal Saline) 10 ml IV ASDIRECTED PRN PRN Reason: IV Use Discontinued Medications Fentanyl (Sublimaze) Confirm Administered Dose 250 mcg .ROUTE .STK-MED ONE Stop: 12/05/18 07:13 Ciprofloxacin/Dextrose 400 mg/ (Premix) 200 mls @ 200 mls/hr IV ONCALL ONE Stop: 12/05/18 01:00 Lidocaine (Xylocaine-Mpf 2%) Confirm Administered Dose 5 ml .ROUTE .STK-MED ONE Stop: 12/05/18 07:12 Midazolam HCl (Versed 1 Mg/Ml) Confirm Administered Dose 2 mg .ROUTE .STK-MED ONE Stop: 12/05/18 07:13 Ondansetron HCl (Zofran) Confirm Administered Dose 4 mg .ROUTE .STK-MED ONE Stop: 12/05/18 07:12 Propofol (Diprivan 20 Ml) Confirm Administered Dose 200 mg .ROUTE .STK-MED ONE Stop: 12/05/18 07:13
[2018-12-05] MEDS ORDERED: Ciprofloxacin in D5W 400 MG in Premix Bag 1 BAG IV ONE ×2 (07:30)
[2018-12-05] MEDS ORDERED: Rocuronium 100 MG/10 ML Syringe ONE (08:10)
[2018-12-05] MEDS ORDERED: Neostigmine Methylsulfate 1 MG/ML 5 ML Syringe ONE (08:28)
[2018-12-05] MEDS ORDERED: ePHEDrine 50 MG/ML SDV ONE (08:32)
[2018-12-05] MEDS ORDERED: Naloxone 0.4 MG/ML Syringe IVPUSH PRN (08:33)
[2018-12-05] MEDS ORDERED: Albuterol 0.083% 2.5 MG/3 ML Neb Soln NEB PRN (08:33)
[2018-12-05] MEDS ORDERED: 50% Dextrose in Water 50 ML Syringe IVPUSH PRN (08:33)
[2018-12-05] MEDS ORDERED: EPINEPHrine 1 MG/1 ML Amp IVPUSH PRN (08:33)
[2018-12-05] MEDS ORDERED: Atropine 1 MG/ML SDV IVPUSH PRN ×2 (08:33)
[2018-12-05] MEDS ORDERED: fentaNYL 100 MCG/2 ML SDV IVPUSH PRN (08:33)
--- NOTE | 2018-12-05 15:53 | OR ---
SURGEON: Eduardo Manriquez M.D. DATE OF PROCEDURE: 12/05/2018 PREOPERATIVE DIAGNOSIS: 1 cm right upper ureteral stone. POSTOPERATIVE DIAGNOSIS: 1 cm right upper ureteral stone. OPERATION: ESWL plus cystoscopy, double-J stent removal. DESCRIPTION OF PROCEDURE: The patient was given general anesthesia. She was on the lithotripsy table. The position of the patient was adjusted, so the stone could be treated and eventually received a total of 2400 shocks monitoring throughout the treatment. The shadow of the stone completely disappeared. With that done, the patient was then placed in dorsal lithotomy position. The 25-Syrian cystoscope was introduced in the bladder. The double-J stent was grasped and removed. The patient tolerated the procedure well and was moved to recovery room in good condition. DIANE / HODAN /[id number]
[2018-12-05] MEDS ORDERED: metFORMIN 500 MG Tab PO SCH (21:00)
[2018-12-05] MEDS ORDERED: Famotidine 20 MG Tab PO SCH (21:00)
[2018-12-06] MEDS ORDERED: Levothyroxine 100 MCG Tab PO SCH (09:00)
[2018-12-06] MEDS ORDERED: ERGOCALCIFEROL 1.25 MG PO SCH (09:00)
[2018-12-06] MEDS ORDERED: PROTANDIM PO SCH (09:00)
[2018-12-06] MEDS ORDERED: CYANOCOBALAMIN 500 MCG BUCCAL SCH (09:00)
[2018-12-06] MEDS ORDERED: Lisinopril 10 MG Tab PO SCH (09:00)
[2018-12-06] MEDS ORDERED: Non-Formulary Medication 1 Each (Timolol Maleate 1 DROP) EYEBOTH SCH (09:00)
[2018-12-06] MEDS ORDERED: Non-Formulary Medication 1 Each (Ubidecarenone 100 MG) PO SCH (09:00)
[2018-12-06] MEDS ORDERED: GLUCOSAMINE 1500 MG PO SCH (09:00)
[2018-12-06] MEDS ORDERED: atorvaSTATin 20 MG Tab PO SCH (09:00)
== END 2018-12-05 11:30 | disposition home or self-care (01) ==
LOC: MW.SDS 06:28
PROVIDERS: ATTEND Urology
DX: N20.1 Calculus of ureter (principal); I10 Essential (primary) hypertension; E11.9 Type 2 diabetes mellitus without complications; E78.00 Pure hypercholesterolemia, unspecified; E03.9 Hypothyroidism, unspecified; G47.30 Sleep apnea, unspecified; Z88.8 Allergy status to other drugs, medicaments and biological substances; Z88.1 Allergy status to other antibiotic agents; Z88.2 Allergy status to sulfonamides; Z99.89 Dependence on other enabling machines and devices; Z79.84 Long term (current) use of oral hypoglycemic drugs; Z79.899 Other long term (current) drug therapy; Z91.048 Other nonmedicinal substance allergy status
CPT/HCPCS: 50590; 52310; 82962; J0744; J2001; J2250; J2405; J2704; J3010; J7120; 88300